=== PATIENT | male | born 1975 | race Caucasian/White ===

== ENCOUNTER 2017-12-27 05:24 | Emergency (ER) | payer OTHER ==
[~2017-12-27] VITALS: Ht 195.6 cm; Wt 175.3 kg
[2017-12-27] MEDS ORDERED: MONT10TA6 PO (05:51)
[2017-12-27] MEDS ORDERED: ALBU18HF INH (05:52)
[2017-12-27] MEDS ORDERED: FLUT1DIS5 IH (05:52)
[2017-12-27] MEDS ORDERED: ALBUTEROL SULFATE 2.5 MG/3 ML ONE (06:13)
[2017-12-27 06:40] VITALS: BP 128/69
== END 2017-12-27 07:03 | disposition home or self-care (01) ==
LOC: ED 06:50
DX: J20.8 Acute bronchitis due to other specified organisms (principal); B97.89 Other viral agents as the cause of diseases classified elsewhere; J45.909 Unspecified asthma, uncomplicated
CPT/HCPCS: 71046; 93005; 94640; 99284; J7512